=== PATIENT | male | born 1975 ===

== ENCOUNTER 2017-07-13 15:56 | Emergency (ER) | payer MEDICAID ==
[2017-07-13 16:42] VITALS: RESP 18
--- NOTE | 2017-07-13 17:27 | ED PDOC ---
HPI: Dental Pain/Injury Time Seen by Provider: 07/13/17 16:35 Chief Complaint (Nursing): Dental Pain Chief Complaint (Provider): Left lower gum palencia, swelling x 4 days History Per: Patient History/Exam Limitations: no limitations Onset/Duration Of Symptoms: Days Current Symptoms Are (Timing): Still Present Quality: Dull, Pressure Additional Complaint(s): Pt reports gum pain and swelling, lower left for 4 days. Pt states the area is getting more and more swollen. No similar in the past. No fever/chills. Past Medical History Reviewed: Historical Data, Nursing Documentation, Vital Signs Vital Signs: Last Vital Signs Temp 98.2 F 07/13/17 16:40 Pulse 69 07/13/17 16:40 Resp 18 07/13/17 16:40 BP 170/83 H 07/13/17 16:40 Pulse Ox 98 07/13/17 16:40 - Medical History PMH: No Chronic Diseases - Surgical History Surgical History: No Surg Hx - Family History Family History: States: No Known Family Hx - Living Arrangements Living Arrangements: With Family - Social History Current smoker - smoking cessation education provided: No - Home Medications Home Medications: Ambulatory Orders Medication Instructions Recorded Lactobacillus Acidophilus 1 each PO TID #30 capsule 05/12/16 [Probiotic] Loperamide [Imodium] 2 mg PO ONCE #10 cap 05/12/16 Amoxicillin/Clavulanate [Augmentin 1 tab PO BID #20 tab 07/13/17 875 MG-125 MG] - Allergies Allergies/Adverse Reactions: Allergies Allergy/AdvReac Type Severity Reaction Status Date / Time No Known Allergies Allergy Verified 05/12/16 17:52 Review of Systems ROS Statement: Except As Marked, All Systems Reviewed And Found Negative Constitutional: Negative for: Fever, Chills ENT: Positive for: Mouth Pain. Negative for: Mouth Swelling, Throat Swelling Physical Exam - Reviewed Nursing Documentation Reviewed: Yes Vital Signs Reviewed: Yes - Physical Exam Appears: Positive for: Well, Non-toxic, No Acute Distress Head Exam: Positive for: ATRAUMATIC, NORMAL INSPECTION, NORMOCEPHALIC Skin: Positive for: Normal Color, Warm, DRY Eye Exam: Positive for: Normal appearance ENT: Positive for: Other ((+) swollen area of gingiva, approx 0.5cm x 1cm, lower left - No fluctulance in area ). Negative for: Normal ENT Inspection Neck: Positive for: Normal Cardiovascular/Chest: Positive for: Regular Rate, Rhythm Respiratory: Negative for: Accessory Muscle Use, Respiratory Distress Back: Positive for: Normal Inspection Extremity: Positive for: Normal ROM Neurologic/Psych: Positive for: Alert - ECG O2 Sat by Pulse Oximetry: 98 Disposition - Clinical Impression Clinical Impression: Blister of gum with infection - Patient ED Disposition Is Patient to be Admitted: No Counseled Patient/Family Regarding: Diagnosis, Need For Followup, Rx Given - Disposition Disposition: Routine/Home Disposition Time: 17:26 Condition: GOOD Additional Instructions: Motrin as needed for pain. Prescriptions: Amoxicillin/Clavulanate [Augmentin 875 MG-125 MG] 1 tab PO BID #20 tab Instructions: Toothache (ED)
[2017-07-13 17:42] VITALS: BP 140/84; PULSE 78; TEMP 98; O2SAT 100
== END 2017-07-13 17:42 | disposition home or self-care (01) ==
LOC: H.ER 15:56
DX: K08.89 Other specified disorders of teeth and supporting structures (principal)

== ENCOUNTER 2018-05-02 15:37 | Emergency (ER) | payer MEDICAID, OTHER ==
[2018-05-02 15:45] VITALS: BP 147/81; PULSE 71; RESP 16; TEMP 99; O2SAT 100
--- NOTE | 2018-05-02 16:14 | ED PDOC ---
HPI: General Adult Chief Complaint (Provider): scrotal pain History Per: Patient History/Exam Limitations: no limitations Additional Complaint(s): Dontae Downey is a 42 year old male who is presenting to the emergency room for evaluation of bilateral testicular pain x 2 weeks. No associated dysuria, hematuria or penile discharge. Patient does not believe he is at risk for STD. No associated fever, chills or abdominal pain. PMD: none <Paulette Hernández - Last Filed: 05/02/18 18:29> <Sherice Mckoy - Last Filed: 05/03/18 00:01> Time Seen by Provider: 05/02/18 15:48 Chief Complaint (Nursing): Groin Pain Supervising Attending Note - Attestation: I have personally seen and examined this patient.: No I have reviewed all pertinent clinical information, including history, physical exam and plan: Yes <Sherice Mckoy - Last Filed: 05/03/18 00:01> Past Medical History Reviewed: Historical Data, Nursing Documentation, Vital Signs Vital Signs: Last Vital Signs Temp 99.0 F 05/02/18 15:42 Pulse 71 05/02/18 15:42 Resp 16 05/02/18 15:42 BP 147/81 05/02/18 15:42 Pulse Ox 100 05/02/18 15:42 - Medical History PMH: No Chronic Diseases - Surgical History Surgical History: No Surg Hx - Family History Family History: States: No Known Family Hx - Living Arrangements Living Arrangements: With Family - Social History Current smoker - smoking cessation education provided: No Alcohol: Social Drugs: Denies <Paulette Hernández - Last Filed: 05/02/18 18:29> Vital Signs: Last Vital Signs Temp 99.0 F 05/02/18 15:42 Pulse 71 05/02/18 15:42 Resp 16 05/02/18 15:42 BP 147/81 05/02/18 15:42 Pulse Ox 100 05/02/18 19:23 <Sherice Mckoy - Last Filed: 05/03/18 00:01> - Home Medications Home Medications: Ambulatory Orders Medication Instructions Recorded Lactobacillus Acidophilus 1 each PO TID #30 capsule 05/12/16 [Probiotic] Loperamide [Imodium] 2 mg PO ONCE #10 cap 05/12/16 Amoxicillin/Clavulanate [Augmentin 1 tab PO BID #20 tab 07/13/17 875 MG-125 MG] - Allergies Allergies/Adverse Reactions: Allergies Allergy/AdvReac Type Severity Reaction Status Date / Time No Known Allergies Allergy Verified 05/12/16 17:52 Review of Systems ROS Statement: Except As Marked, All Systems Reviewed And Found Negative Constitutional: Negative for: Fever, Chills Cardiovascular: Negative for: Chest Pain Gastrointestinal: Negative for: Nausea, Vomiting, Abdominal Pain, Diarrhea, Constipation Genitourinary Male: Positive for: Scrotal Pain, Other (B/l testicular pain). Negative for: Dysuria, Frequency, Incontinence, Hematuria, Penile Discharge <Paulette Hernández - Last Filed: 05/02/18 18:29> Physical Exam - Reviewed Nursing Documentation Reviewed: Yes Vital Signs Reviewed: Yes - Physical Exam Appears: Positive for: Well, Non-toxic, No Acute Distress Skin: Positive for: Normal Color. Negative for: Rash Eye Exam: Positive for: Normal appearance Cardiovascular/Chest: Positive for: Regular Rate, Rhythm Respiratory: Positive for: Normal Breath Sounds. Negative for: Wheezing, Respiratory Distress Gastrointestinal/Abdominal: Positive for: Soft. Negative for: Tenderness, Distended, Guarding, Rebound Male Genital Exam: Positive for: other (Mild diffuse tenderness to bilateral testes, no palpable masses, no erythema or rashes, normal penile shaft) Back: Negative for: L CVA Tenderness, R CVA Tenderness Extremity: Positive for: Normal ROM Neurologic/Psych: Positive for: Alert, Oriented <Paulette Hernández - Last Filed: 05/02/18 18:29> - Laboratory Results Urine dip results: Negative for: Leukocyte Esterase, Blood, Nitrate, Ketones, Glucose, Bilirubin, Protein - ECG O2 Sat by Pulse Oximetry: 100 (RA) Pulse Ox Interpretation: Normal - Other Rad Testes US X-Ray: Read By Radiologist X-Ray Interpretation: see below <Paulette Hernández - Last Filed: 05/02/18 18:29> Medical Decision Making Medical Decision Making: Time: 16:10 Impression: 42 year old male with testicular pain Plan: --ED Urine Dipstick --Testes US --Pain meds declined --Urine culture --CHL/GC culture US: Left varicocele, no other acute abnormality Patient is aware of all diagnostic testing results, all questions answered. Patient informed that urine culture and gonorrhea and chlamydia culture were sent. He is advised that he will receive a call for any positive results. Advised NSAIDs for pain and follow-up with urology. -- Scribe Attestation: Documented by Casie Garcia, acting as a scribe for Paulette Hernández PA-C. Provider Scribe Attestation: All medical record entries made by the Scribe were at my direction and personally dictated by me. I have reviewed the chart and agree that the record accurately reflects my personal performance of the history, physical exam, medical decision making, and the department course for this patient. I have also personally directed, reviewed, and agree with the discharge instructions and disposition. <Paulette Hernández - Last Filed: 05/02/18 18:29> Disposition - Patient ED Disposition Is Patient to be Admitted: No Counseled Patient/Family Regarding: Studies Performed, Diagnosis, Need For Followup - Disposition Disposition: Routine/Home Disposition Time: 18:30 <Paulette Hernández - Last Filed: 05/02/18 18:29> <Sherice Mckoy - Last Filed: 05/03/18 00:01> - Clinical Impression Clinical Impression: Scrotal pain - Disposition Referrals: Manuel Blue MD [Medical Doctor] - [facility] [Outside] Condition: STABLE Additional Instructions: Take Tylenol or Advil for pain as needed. Follow-up with urologist. Instructions: Groin Strain, How to Perform a Testicular Self-Exam, Varicocele Forms: [employer])
--- NOTE | 2018-05-02 18:44 | US ---
Date of service: 05/02/2018 HISTORY: bilateral testicular pain TECHNIQUE: Realtime sonography through the scrotum with color and doppler flow. COMPARISON: None Available. FINDINGS: RIGHT TESTICLE: Measures 5.1 x 2.4 x 3.7 cm. Normal echotexture and flow. RIGHT EPIDIDYMIS: Epididymal head measures 0.9 x 0.7 x 0.9 cm. Grossly unremarkable appearance with normal flow. LEFT TESTICLE: Measures 5.4 x 2.5 x 3.1 cm. Normal echotexture and flow. LEFT EPIDIDYMIS: Epididymal head measures 1 x 0.8 x 1.1 cm. Grossly unremarkable appearance with normal flow. HYDROCELE: Small right sided hydrocele noted. VARICOCELE: Mild left varicocele is also noted. OTHER FINDINGS: None. IMPRESSION: No evidence of testicular torsion or testicular mass. Small right hydrocele and mild left varicocele noted.
== END 2018-05-02 18:37 | disposition home or self-care (01) ==
LOC: H.ER 15:37
DX: I86.1 Scrotal varices (principal)